=== PATIENT | female | born 1975 | race American Indian/Alaskan Native ===

== ENCOUNTER 2019-11-27 20:49 | Emergency (ER) | payer BC ==
[2019-11-27 21:16] LABS: Hematocrit 21.7 % (30.3-42.9); Hemoglobin 6.3 gm/dl (10.1-14.3); Mean Corpuscular HGB Conc 29 % (30-34); Platelet Count 401 K/mm3 (140-440); Red Blood Count 3.75 M/mm3 (3.65-5.03)
[2019-11-27 21:19] LABS: Mean Corpuscular Volume 58 fl (79-97); Red Cell Distribution Width 20.6 % (13.2-15.2)
[2019-11-27 22:01] LABS: Anisocytosis 1+; Total Cells Counted 100
[2019-11-27 22:02] LABS: Hypochromasia 1+
--- NOTE | 2019-11-27 23:17 | Emergency Department Report ---
ED General Adult HPI - General Chief complaint: Recheck/Abnormal Lab/Rx Stated complaint: REFERRED BY /SAMINA TOURE Time Seen by Provider: 11/27/19 22:58 Source: patient, RN notes reviewed Mode of arrival: Ambulatory Limitations: No Limitations - History of Present Illness Initial comments: The patient is a pleasant 44-year-old female who is not known to this provider previously. Her primary care doctor is Dr. Davis, she reports that she is not , she has a history of microcytic anemia, was formally on iron sulfate, but not now, also has history of PCO S, gastric sleeve, endorses compliance with supplemental vitamins medications. She presents to the ER today after her primary care doctor instructed her to come to the ER for incidental and asymptomatic anemia. Patient had outpatient blood work done recently, and was found to have a hemoglobin of 5, was sent to the emergency room for evaluation. The patient denies headache, neck pain, exertional chest pain, exertional shortness of breath, denies hematemesis, bright red blood per rectum, and new or different fatigue. She reports that she has typical heavy menstruation, and menstruation typically lasts from 5-7 days. She is not having any symptoms at this time, with the exception of mild bilateral breast discomfort, for which her primary care doctor has referred her for outpatient mammogram. She doesn't endorse that she would not have presented to the emergency room for evaluation, if her primary care doctor had not counseled her to do so. Improves with: none Worsens with: none Associated Symptoms: denies other symptoms - Related Data Previous Rx's Medication Instructions Recorded Last Taken Type Docusate Sodium [Colace] 100 mg PO BID PRN #30 capsule 11/27/19 Unknown Rx Ferrous Sulfate [Feosol 325 MG tab] 325 mg PO TID #90 tablet 11/27/19 Unknown Rx Allergies Allergy/AdvReac Type Severity Reaction Status Date / Time No Known Allergies Allergy Unverified 11/27/19 21:01 ED Review of Systems ROS: Stated complaint: REFERRED BY /SAMINA TOURE Other details as noted in HPI Constitutional: denies: fever, malaise, weakness Eyes: denies: eye discharge ENT: denies: congestion Respiratory: denies: shortness of breath Cardiovascular: denies: chest pain, syncope Gastrointestinal: denies: abdominal pain, hematemesis, melena, hematochezia Genitourinary: abnormal menses (history of heavy menstruation, not currently menstruating at this time). denies: dysuria Musculoskeletal: denies: back pain Skin: denies: lesions Neurological: denies: weakness Hematological/Lymphatic: denies: easy bleeding ED Past Medical Hx - Past Medical History Previous Medical History?: Yes Additional medical history: PCOS. IBS - Surgical History Past Surgical History?: Yes Additional Surgical History: Gastric Sleeve. - Social History Smoking Status: Never Smoker Substance Use Type: None - Medications Home Medications: Home Medications Medication Instructions Recorded Confirmed Last Taken Type Docusate Sodium [Colace] 100 mg PO BID PRN #30 capsule 11/27/19 Unknown Rx Ferrous Sulfate [Feosol 325 MG tab] 325 mg PO TID #90 tablet 11/27/19 Unknown Rx ED Physical Exam - General Limitations: No Limitations General appearance: alert, in no apparent distress - Head Head exam: Present: atraumatic, normocephalic - Eye Eye exam: Present: normal appearance, PERRL, EOMI, other (minimal bilateral conjunctiva are noted to be pale). Absent: nystagmus - ENT ENT exam: Present: normal exam, normal orophraynx, mucous membranes moist, normal external ear exam - Neck Neck exam: Present: normal inspection, full ROM. Absent: tenderness, meningismus - Respiratory Respiratory exam: Present: normal lung sounds bilaterally. Absent: respiratory distress - Cardiovascular Cardiovascular Exam: Present: regular rate, normal rhythm, normal heart sounds. Absent: bradycardia, tachycardia, irregular rhythm, systolic murmur, diastolic murmur, rubs, gallop - GI/Abdominal GI/Abdominal exam: Present: soft. Absent: distended, tenderness, guarding, rebound, rigid, pulsatile mass - Extremities Exam Extremities exam: Present: normal inspection, full ROM, other (2+ pulses noted in the bilateral upper and lower extremities. The pelvis is stable. There is no long bony tenderness. The muscular compartments are soft. There is no redness, pus, streaking or erythema.). Absent: pedal edema, joint swelling, calf tenderness - Back Exam Back exam: Present: normal inspection, full ROM. Absent: tenderness, CVA tenderness (R), CVA tenderness (L), paraspinal tenderness, vertebral tenderness - Neurological Exam Neurological exam: Present: alert, oriented X3, normal gait, other (there is no facial droop. The tongue is midline. Extraocular movements are intact bilaterally. Speaking in full sentences. Hearing is grossly intact. 5 out of 5 strength bilateral upper and lower extremities. Sensation is intact to light touch bilateral upper and lower extremities.). Absent: motor sensory deficit - Psychiatric Psychiatric exam: Present: normal affect, normal mood - Skin Skin exam: Present: warm, dry, intact, normal color. Absent: rash ED Course Vital Signs 11/27/19 20:56 Temperature 98.3 F Pulse Rate 79 Respiratory 18 Rate Blood Pressure 117/77 O2 Sat by Pulse 100 Oximetry ED Medical Decision Making - Lab Data Result diagrams: 11/27/19 21:03 Vital Signs 11/27/19 20:56 Temperature 98.3 F Pulse Rate 79 Respiratory 18 Rate Blood Pressure 117/77 O2 Sat by Pulse 100 Oximetry Lab Results 11/27/19 Range/Units 21:03 WBC 7.3 (4.5-11.0) K/mm3 RBC 3.75 (3.65-5.03) M/mm3 Hgb 6.3 L (10.1-14.3) gm/dl Hct 21.7 L (30.3-42.9) % MCV 58 L (79-97) fl MCH 17 L (28-32) pg MCHC 29 L (30-34) % RDW 20.6 H (13.2-15.2) % Plt Count 401 (140-440) K/mm3 Add Manual Diff Complete Total Counted 100 Seg Neuts % (Manual) 39.0 L (40.0-70.0) % Band Neutrophils % 0 % Lymphocytes % (Manual) 50.0 H (13.4-35.0) % Reactive Lymphs % (Man) 0 % Monocytes % (Manual) 7.0 (0.0-7.3) % Eosinophils % (Manual) 3.0 (0.0-4.3) % Basophils % (Manual) 1.0 (0.0-1.8) % Metamyelocytes % 0 % Myelocytes % 0 % Promyelocytes % 0 % Blast Cells % 0 % Nucleated RBC % Not Reportable Seg Neutrophils # Man 2.8 (1.8-7.7) K/mm3 Band Neutrophils # 0.0 K/mm3 Lymphocytes # (Manual) 3.7 (1.2-5.4) K/mm3 Abs React Lymphs (Man) 0.0 K/mm3 Monocytes # (Manual) 0.5 (0.0-0.8) K/mm3 Eosinophils # (Manual) 0.2 (0.0-0.4) K/mm3 Basophils # (Manual) 0.1 (0.0-0.1) K/mm3 Metamyelocytes # 0.0 K/mm3 Myelocytes # 0.0 K/mm3 Promyelocytes # 0.0 K/mm3 Blast Cells # 0.0 K/mm3 WBC Morphology Not Reportable Hypersegmented Neuts Not Reportable Hyposegmented Neuts Not Reportable Hypogranular Neuts Not Reportable Smudge Cells Not Reportable Toxic Granulation Not Reportable Toxic Vacuolation Not Reportable Dohle Bodies Not Reportable Pelger-Huet Anomaly Not Reportable Dayan Rods Not Reportable Platelet Estimate Not Reportable Clumped Platelets Not Reportable Plt Clumps, EDTA Not Reportable Large Platelets Not Reportable Giant Platelets Not Reportable Platelet Satelliting Not Reportable Plt Morphology Comment Not Reportable RBC Morphology Not Reportable Dimorphic RBCs Not Reportable Polychromasia Not Reportable Hypochromasia 1+ Poikilocytosis Not Reportable Anisocytosis 1+ Microcytosis 2+ Macrocytosis Not Reportable Spherocytes Not Reportable Pappenheimer Bodies Not Reportable Sickle Cells Not Reportable Target Cells Not Reportable Tear Drop Cells Not Reportable Ovalocytes Not Reportable Helmet Cells Not Reportable [place] Bodies Not Reportable [place] Rings Not Reportable Aime Cells Not Reportable Bite Cells Not Reportable Crenated Cell Not Reportable Elliptocytes Not Reportable Acanthocytes (Spur) Not Reportable Rouleaux Not Reportable Hemoglobin C Crystals Not Reportable Schistocytes Not Reportable Malaria parasites Not Reportable [place] Bodies Not Reportable Hem Pathologist Commnt No - Medical Decision Making Differential diagnosis, including but not limited to: Asymptomatic microcytic anemia Assessment and plan: 44-year-old female who states that she is not , history of gastric sleeve, endorses compliance with multivitamins, endorses h istory of heavy menstruation, with asymptomatic microcytic anemia, this is likely chronic. The patient is afebrile with reassuring vital signs. She states she would not have presented to the emergency room if not instructed to do so by her primary care doctor. She is not interested in the packed red blood cell transfusion, and I agree with this. Through shared decision making, we agreed to discharge with iron sulfate supplementation, we discussed diet and lifestyle modifications, the patient can [place] back and follow-up with her primary care doctor, bariatric surgeon, or zipper setter lockstitch, and if anemia is refractory to conservative measures, she can follow up with an outpatient waredresser to determine suitability for iron infusions. Patient makes multiple requests to be discharged at this time. At the moment, she does not meet criteria for packed red blood cell transfusion, as she is not having symptoms, and she endorses that she is reliable to follow-up. Critical care attestation.: If time is entered above; I have spent that time in minutes in the direct care of this critically ill patient, excluding procedure time. ED Disposition Clinical Impression: Microcytic anemia Disposition: DC-01 TO HOME OR SELFCARE Is pt being admited?: No Does the pt Need Aspirin: No Condition: Stable Additional Instructions: Avoid consumption of Motrin, ibuprofen, Naprosyn, Aleve. Avoid consumption of alcohol, heavy and/or spicy foods. Continue current outpatient medications and supplemental vitamins. Take the iron sulfate supplementation as directed, wash in, this medication may cause constipation, cramping and black stool. Recommend patient follow-up with her primary care doctor, or zipper setter lockstitch, within the next 2 weeks for asymptomatic anemia. Patient should also consume plenty of green leafy vegetables, and lean protein, such as [place], chicken, fish, beef or pork. If patient continues to have low blood counts in spite of the above measures, the patient may consider evaluation by waredresser, such as Dr. Blunt, for evaluation for possible iron infusion. Please return to the emergency room right away with new, worsened or different symptoms, projectile vomiting, change in mental status, confusion, inability to tolerate liquid feeds, new, worsened or different symptoms not present on the initial emergency room evaluation. Drink 4-6 cups of water per day for the foreseeable future. Referrals: [facility] [Provider Group] - as needed VIRGEN BLUNT MD [Staff Physician] - as needed
[2019-11-28 00:20] VITALS: BP 120/75
== END 2019-11-28 00:15 | disposition home or self-care (01) ==
LOC: ED 20:49
DX: D50.9 Iron deficiency anemia, unspecified (principal); Z79.899 Other long term (current) drug therapy; Z98.890 Other specified postprocedural states
CPT/HCPCS: 36415; 85007; 85025